=== PATIENT | male | born 1970 | race Caucasian/White ===

== ENCOUNTER 2017-12-14 14:11 | Emergency (ER) | payer OTHER ==
[2017-12-14 14:29] VITALS: TEMP 97.9
[2017-12-14] MEDS ORDERED: LIDOCAINE 5% PATCH TOPICAL STA (15:04)
[2017-12-14] MEDS ORDERED: fentaNYL (PF) 50 MCG/ML 2 ML AMP IVP STA (15:04)
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
[2017-12-14] MEDS ORDERED: MORPHINE SULFATE 4 MG/ML SYRINGE IVP PRN (15:09)
--- NOTE | 2017-12-14 16:34 | XR ---
EXAMINATION TYPE: XR chest 2V DATE OF EXAM: 12/14/2017 COMPARISON: NONE HISTORY: History of recent rib fractures pain and shortness of breath TECHNIQUE: Frontal and lateral views of the chest are obtained. FINDINGS: Patchy basilar density likely reflects atelectatic changes. No evident pneumothorax. Fifth rib on the right shows a minimally displaced fracture. Cardiac mediastinal silhouette, pulmonary vas cularity and lee are within normal limits. IMPRESSION: Basilar atelectasis. Minimally displaced right rib fracture.
[2017-12-14 17:25] VITALS: BP 127/81; PULSE 74; RESP 18
== END 2017-12-14 17:22 | disposition home or self-care (01) ==
LOC: EC 14:11
DX: R07.81 Pleurodynia (principal); S22.31XD Fracture of one rib, right side, subsequent encounter for fracture with routine healing; Z53.8 Procedure and treatment not carried out for other reasons; V99.XXXD Unspecified transport accident, subsequent encounter
CPT/HCPCS: 71046; 99285; 96374; J2270

== ENCOUNTER → 2018-04-18 | Outpatient (CLI) | payer OTHER ==
--- NOTE | 2018-04-18 09:09 | MR ---
EXAMINATION TYPE: MR shoulder LT wo con DATE OF EXAM: 04/18/2018 8:16 AM COMPARISON: NONE HISTORY: Left shoulder pain TECHNIQUE: Multiplanar multispin echo imaging of the left shoulder was performed. FINDINGS: Rotator cuff : There is thickening and heterogeneity of the supraspinatus tendon compatible with expense analyst florinda tendinopathy. There is no complete or bursal/articular sided partial rotator cuff tear. The subsc apularis constituent of the rotator cuff is intact. Bursa: No bursal effusion or thickening is seen. Musculature: There is no muscular tear, contusion, or atrophy. Acromioclavicular joint : There are mild degenerative changes of the acromioclavicular joint. Moderat e subacromial spurring results in the subacromial impingement. Osseous structures : There are no fractures or regions of abnormal bone marrow signal intensity. Long biceps tendon : The biceps tendon is normally situated within the bicipital groove. No complete or partial biceps tendon tear is present. Glenohumeral Joint fluid : There is no glenohumeral joint effusion. Cartilage and Bone : No focal hyaline cartilage defects are noted. No Hill-Sachs, reverse Hill-Sachs, or bony Bankart lesions are seen. Labrum : There are no SLAP or soft tissue Bankart lesions. No paralabral cysts are seen. OTHER FINDINGS : Small well-corticated cystic lesion humeral neck measuring 8 mm. IMPRESSION: 1. Chronic tendinopathy supraspinatus tendon with subacromial impingement noted.
== END | disposition home or self-care (01) ==
LOC: RADMRIMAIN 07:34
DX: M75.82 Other shoulder lesions, left shoulder (principal)

== ENCOUNTER → 2018-05-12 | Outpatient (CLI) | payer OTHER ==
[2018-05-12 08:43] LABS: Basophils # (A) 0.1 k/uL (0-0.2); Basophils % (A) 1 %; Eosinophils # (A) 0.3 k/uL (0-0.7); Eosinophils % (A) 4 %; HGB 15.5 gm/dL (13.0-17.5); Lymphocytes # (A) 1.5 k/uL (1.0-4.8); Lymphocytes % (A) 21 %; MCH 29.9 pg (25.0-35.0); MCHC 32.2 g/dL (31.0-37.0); MCV 92.9 fL (80.0-100.0); Mean Platelet Volume 6.2; Monocytes # (A) 0.3 k/uL (0-1.0); Monocytes % (A) 5 %; Neutrophils # (A) 4.6 k/uL (1.3-7.7); Neutrophils % (A) 67 %; Platelet Count 191 k/uL (150-450); RBC 5.16 m/uL (4.30-5.90); WBC 6.8 k/uL (3.8-10.6)
[2018-05-12 09:01] LABS: Potassium 4.4 mmol/L (3.5-5.1)
== END ==
LOC: LABPAT 08:02
PROVIDERS: ATTEND Orthopaedic Surgery
DX: Z01.812 Encounter for preprocedural laboratory examination (principal); M23.92 Unspecified internal derangement of left knee
CPT/HCPCS: 80051; 85025

== ENCOUNTER 2018-05-18 06:02 | Day surgery (SDC) | payer OTHER ==
[2018-05-12 14:30] VITALS: BMI 29.5
--- NOTE | 2018-05-17 15:04 | HP ---
HISTORY AND PHYSICAL DATE OF SERVICE: 05/18/2018 Juan Mendiola is a 47-year-old patient seen with progressive left knee pain. We discussed treatment options. He elected to proceed with arthroscopy. Consent regarding the procedure was obtained. PAST MEDICAL HISTORY: Depression, hypertension. PAST SURGICAL HISTORY: Left knee arthroscopy. DAILY MEDICATIONS: None. ALLERGIES: NONE KNOWN. SOCIAL HISTORY: Denies current tobacco use. PHYSICAL EVALUATION OF THE LEFT KNEE: Range of motion 0-85 degrees. Tenderness medial and lateral joint lines. Positive medial Antony's. Positive lateral Antony's. Ligaments are stable. Hip rotation is without pain. His distal neurovascular exam is intact. RADIOGRAPHS OF THE LEFT KNEE: Revealed patellofemoral joint osteoarthropathy as well as moderate medial and lateral compartment osteoarthritis. IMPRESSION: 1. Internal derangement, left knee with meniscal tear versus osteochondral tear. 2. History of left knee patellofemoral arthroplasty. 3. Hypertension. PLAN: Left knee arthroscopy with partial meniscectomy versus chondroplasty and debridement. MMODL / IJN: [id number] /
[~2018-05-18 06:02] MED LIST: ceFAZolin IN SWFI 2 GM/20 ML SYRINGE IVP ONE
[2018-05-18] MEDS ORDERED: fentaNYL (PF) 50 MCG/ML 2 ML AMP IV PRN (06:11)
[2018-05-18] MEDS ORDERED: LIDOCAINE 1% 20 ML VIAL (10MG/ML) FOR IV START INTRADERMA PRN (06:11)
[2018-05-18] MEDS ORDERED: LACTATED RINGERS 1,000 ML IV SCH (06:11)
[2018-05-18] MEDS ORDERED: ONDANSETRON 4 MG/2 ML VIAL IVP ONE (07:10)
[2018-05-18] MEDS ORDERED: DEXAMETHASONE SOD PHOS (MDV) 100 MG/10 ML VIAL IV ONE (07:11)
[2018-05-18] MEDS ORDERED: BUPIVACAIN-EPI 0.25%-1:200,000 30 ML VIAL INTRAARTIC ONE ×2 (07:46→08:27)
[2018-05-18] MEDS ORDERED: PROPOFOL 10 MG/ML 20 ML VIAL IV ONE (07:49)
[2018-05-18] MEDS ORDERED: fentaNYL (PF) 50 MCG/ML 2 ML AMP ONE (07:49)
[2018-05-18] MEDS ORDERED: KETOROLAC 30 MG/ML 1 ML VIAL ONE (07:49)
[2018-05-18] MEDS ORDERED: MIDAZOLAM 2 MG/2 ML VIAL ONE (07:49)
[2018-05-18] MEDS ORDERED: LIDOCAINE 1% INJ 10MG/ML (20 ML MDV) ONE (07:49)
[2018-05-18 08:44] VITALS: TEMP 97
--- NOTE | 2018-05-18 08:47 | P.OP ---
Date of Procedure: 05/18/18 Preoperative Diagnosis: Internal derangement left knee Postoperative Diagnosis: 1. Lateral meniscal tear left knee 2. 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 Reactive synovitis medial, lateral and suprapatellar compartments left knee Procedure(s) Performed: 1. Arthroscopic partial lateral meniscectomy left knee 2. Arthroscopic chondroplasty lateral tibial plateau left knee 3. Arthroscopic partial synovectomy medial, lateral and suprapatellar compartments left knee Anesthesia: GETA, local Surgeon: Jono Cassidy Estimated Blood Loss (ml): 5 Pathology: none sent Condition: stable Disposition: PACU Indications for Procedure: 47-year-old patient seen with progressive left knee pain. After treatment options were discussed, he elected to proceed with arthroscopy. Operative Findings: see description of procedure Description of Procedure: Patient was taken to the operative suite. Patient underwent a general anesthetic by the department of anesthesia. Patient was given preoperative antibiotics. The left lower extremity was placed in a well-padded arthroscopic leg chavez. The left leg was prepped and draped in the normal sterile orthopedic fashion. A lateral parapatellar and suprapatellar incision was made. Trochars were inserted. Arthroscopy was initiated. Suprapatellar pouch revealed diffuse thick reactive synovitis. There was a stable appearing patellofemoral compartment arthroplasty present. The patellar component appeared well seated. The femoral component appeared well seated. With range of motion and it seemed to articulate congruently. The scope was guided into the medial gutter. No loose bodies or plica were identified. The scope was then guided into the medial compartment. A medial parapatellar incision was made. Trocar inserted followed by probe. There was some mild fraying along the posterior aspect of the medial meniscus. There were grade 1/2 chondromalacia changes of the medial compartment with no osteochondral tears present. There was thick synovitis anteriorly. Motorize shaver was introduced I debrided that mild fraying of the posterior medial meniscus. I now performed a partial synovectomy decompressing the thick reactive synovitis along the anterior aspect medial compartment. There was good decompression of synovitis. Scope and probe were then guided into the intercondylar notch. Cruciates were identified, probed and found to be stable. The scope and probe were then guided into lateral compartment. There was a radial tear mid body and posterior horn lateral meniscus. There was area of grade 2 chondromalacia of the lateral tibial plateau with articular flap tears present. There was thick reactive synovitis anteriorly. I performed a partial medial meniscectomy down to stable tissue. I performed a chondroplasty of the lateral tibial plateau down to stable tissue. I performed a partial synovectomy decompressing the reactive synovitis. The residual meniscus was stable. The residual osteochondral surface was stable. There was good decompression of the synovitis. The scope was in guided back into the suprapatellar compartment. I introduced a motorized shaver into the suprapatellar compartment. I performed a partial synovectomy decompressing reactive synovitis. The shaver was removed. I took one more look around the entire knee, no residual debris. Instruments were now removed from the joint. The joint was infiltrated with .25% Marcaine. Steri-Strips were applied to the portal sites. Sterile dressings were applied. The patient was placed into a CASIMIRO hose. No tourniquet was utilized. The patient was awakened, transferred to a bed and taken to recovery stable satisfactory condition.
[2018-05-18 08:55] VITALS: RESP 18
[2018-05-18 10:08] VITALS: BP 124/82; PULSE 61
== END 2018-05-18 10:21 | disposition home or self-care (01) ==
LOC: OR 06:02
PROVIDERS: ATTEND Orthopaedic Surgery
DX: S83.282A Other tear of lateral meniscus, current injury, left knee, initial encounter (principal); M23.322 Other meniscus derangements, posterior horn of medial meniscus, left knee; M94.262 Chondromalacia, left knee; M65.88 Other synovitis and tenosynovitis, other site; M17.12 Unilateral primary osteoarthritis, left knee; I10 Essential (primary) hypertension; Z96.652 Presence of left artificial knee joint
CPT/HCPCS: 29880; J2250; J2405; J2001; J3010; J1885; J1100; J2704; J0690

== ENCOUNTER 2020-05-11 10:42 | Emergency (ER) | payer OTHER ==
[2020-05-11 11:09] VITALS: BP 109/73; PULSE 86; RESP 18; TEMP 99.1
--- NOTE | 2020-05-11 11:34 | ED ---
General Adult HPI - General Chief complaint: Upper Respiratory Infection Stated complaint: ENT, Cough Time Seen by Provider: 05/11/20 11:10 Source: patient Mode of arrival: ambulatory Limitations: no limitations - History of Present Illness Initial comments: 49-year-old male presents to the emergency department for a covid test. Patient reports that he has had a cough as well as congestion and headache for the past 3 or 4 days to shortness of breath or chest pain. Patient states he feels like he has been running fevers as well but has not been taking anything for these. Patient states that his son is Covid positive. States he would like to be tested. Patient has no other complaints at this time including shortness of breath, chest pain, abdominal pain, nausea or vomiting, headache, or visual changes. - Related Data Previous Rx's Medication Instructions Recorded HYDROcodone/APAP 7.5-325MG [[place] 1 - 2 each PO Q6HR PRN #24 tab 05/18/18 7.5-325] Allergies Allergy/AdvReac Type Severity Reaction Status Date / Time No Known Allergies Allergy Verified 05/11/20 11:09 Review of Systems ROS Statement: Those systems with pertinent positive or pertinent negative responses have been documented in the HPI. ROS Other: All systems not noted in ROS Statement are negative. Past Medical History Past Medical History: No Reported History History of Any Multi-Drug Resistant Organisms: None Reported Past Surgical History: Appendectomy, Hernia Repair, Orthopedic Surgery Additional Past Surgical History / Comment(s): lt knee, left inguinal Past Anesthesia/Blood Transfusion Reactions: No Reported Reaction Past Psychological History: Anxiety, PTSD Past Alcohol Use History: Occasional Past Drug Use History: None Reported - Past Family History Mother Family Medical History: No Reported History General Exam Limitations: no limitations General appearance: alert, in no apparent distress Head exam: Present: atraumatic, normocephalic, normal inspection Eye exam: Present: normal appearance, PERRL, EOMI. Absent: scleral icterus, conjunctival injection ENT exam: Present: normal exam, mucous membranes moist Neck exam: Present: normal inspection, full ROM. Absent: tenderness Respiratory exam: Present: normal lung sounds bilaterally. Absent: respiratory distress, wheezes Cardiovascular Exam: Present: regular rate, normal rhythm, normal heart sounds GI/Abdominal exam: Present: soft, normal bowel sounds. Absent: distended, tenderness Course Vital Signs 05/11/20 11:06 Temperature 99.1 F Pulse Rate 86 Respiratory 18 Rate Blood Pressure 109/73 O2 Sat by Pulse 97 Oximetry Medical Decision Making - Medical Decision Making Vitals are stable. Patient is well-appearing. No respiratory distress. Physical exam unremarkable. Patient is found to be Covid positive. Chest x-ray shows no acute cardiopulmonary process. Discussed vitamins as well as antipyretics. Discussed increasing fluid intake. Following up with primary care and returning for any worsening symptoms including shortness of breath. strict return parameters discussed. - Lab Data Lab Results 05/11/20 Range/Units 11:40 Coronavirus (PCR) Detected A (Not Detectd) Disposition Clinical Impression: COVID-19 Disposition: HOME SELF-CARE Condition: Good Instructions (If sedation given, give patient instructions): Coronavirus Disease 2019 (COVID-19) Additional Instructions: Please take Motrin and Tylenol for pain or fever. Drink plenty of fluids. Take vitamin C, vitamin D3, and zinc [id number]. Follow-up with your doctor in one to 2 days. Return to the emergency department for any worsening symptoms including shortness of breath. You must quarantine for at least 10 days from symptom onset as long as symptoms are improving at the end of the 10 days and you're longer having fevers. Is patient prescribed a controlled substance at d/c from ED?: No Referrals: Chadd Bermeo MD [REFERRING] - 1-2 days Time of Disposition: 12:42
--- NOTE | 2020-05-11 12:05 | XR ---
EXAMINATION TYPE: XR chest 1V DATE OF EXAM: 05/11/2020 COMPARISON: 12/14/2017 HISTORY: Cough TECHNIQUE: Single frontal view of the chest is obtained. The examination is somewhat limited by mildl y suboptimal inspiration. FINDINGS: The lungs are grossly clear consolidative or masslike opacity. There is no pleural effusion or pneumothorax. The heart, pulmonary vasculature, mediastinum and hilum appear normal. The osseous structures and soft tissues are unremarkable. IMPRESSION: No acute cardiopulmonary disease.
== END 2020-05-11 12:57 | disposition home or self-care (01) ==
LOC: EC 10:42
DX: U07.1 COVID-19 (principal)
CPT/HCPCS: 71045; 87635; 99285

== ENCOUNTER 2020-10-31 07:54 | Emergency (ER) | payer BC, OTHER ==
[2020-10-31 08:06] VITALS: RESP 18; TEMP 98.4
[2020-10-31] MEDS ORDERED: IBUPROFEN 600 MG TAB PO STA (08:12)
[2020-10-31] MEDS ORDERED: LIDOCAINE 1% INJ 10MG/ML (20 ML MDV) SQ ONE (08:19)
--- NOTE | 2020-10-31 09:17 | ED ---
Skin/Abscess/FB HPI - General Chief complaint: Skin/Abscess/Foreign Body Stated complaint: Abcess on back Time Seen by Provider: 10/31/20 08:10 Source: patient, RN notes reviewed Mode of arrival: ambulatory Limitations: no limitations - History of Present Illness Initial comments: Patient is a 49-year-old male that presents to the emergency department c omplaining of an abscess to the upper middle back. He notes that he has a history of lipoma was thought was that. He notes that it started draining last night on its own so he came in to get evaluated. She denied any radiating symptoms or other complaints. He notes the pain is pretty localized to the area abscess. She denied any chest pain shortness breath headache nausea vomiting diarrhea constipation fever fatigue chills. - Related Data Previous Rx's Medication Instructions Recorded HYDROcodone/APAP 7.5-325MG [[place] 1 - 2 each PO Q6HR PRN #24 tab 05/18/18 7.5-325] Cephalexin [Keflex] 500 mg PO Q6HR #40 cap 10/31/20 Sulfamethox-Tmp 800-160Mg [Bactrim 1 each PO Q12HR #20 tab 10/31/20 Ds] Allergies Allergy/AdvReac Type Severity Reaction Status Date / Time No Known Allergies Allergy Verified 10/31/20 08:01 Review of Systems ROS Statement: Those systems with pertinent positive or pertinent negative responses have been documented in the HPI. ROS Other: All systems not noted in ROS Statement are negative. Past Medical History Past Medical History: No Reported History History of Any Multi-Drug Resistant Organisms: None Reported Past Surgical History: Appendectomy, Hernia Repair, Orthopedic Surgery Additional Past Surgical History / Comment(s): lt knee, left inguinal Past Anesthesia/Blood Transfusion Reactions: No Reported Reaction Past Psychological History: Anxiety, PTSD Smoking Status: Never smoker Past Alcohol Use History: None Reported Past Drug Use History: None Reported - Past Family History Mother Family Medical History: No Reported History General Exam Limitations: no limitations General appearance: alert, in no apparent distress Head exam: Present: atraumatic, normocephalic, normal inspection Eye exam: Present: normal appearance, PERRL, EOMI. Absent: scleral icterus, conjunctival injection, periorbital swelling Neck exam: Present: normal inspection Respiratory exam: Present: normal lung sounds bilaterally. Absent: respiratory distress, wheezes, rales, rhonchi, stridor Cardiovascular Exam: Present: regular rate, normal rhythm, normal heart sounds. Absent: systolic murmur, diastolic murmur, rubs, gallop, clicks GI/Abdominal exam: Present: soft, normal bowel sounds. Absent: distended, tenderness, guarding, rebound, rigid Extremities exam: Present: normal inspection, full ROM, normal capillary refill. Absent: tenderness, pedal edema, joint swelling, calf tenderness Neurological exam: Present: alert, oriented X3 Psychiatric exam: Present: normal affect, normal mood Skin exam: Present: warm, dry, intact, normal color. Absent: rash Expanded Type of lesion: Present: abscess (Middle upper back, measuring approximately 5 cm x 5 cm, erythematous minimally tender draining.) Course Vital Signs 10/31/20 08:02 Temperature 98.4 F Pulse Rate 93 Respiratory 18 Rate Blood Pressure 155/99 O2 Sat by Pulse 100 Oximetry Procedures - Incision & Drainage Consent Obtained: verbal consent Site: back (Middle back) Size (cm): 5 Anesthetic Used: lidocaine 1% Amount (mLs): 6 I&D Cleaning Method: Betadine Sterile Field Used?: Yes Scalpel Used: #11 Irrigation Performed?: Yes I&D Drainage Obtained: Pus, Blood Packing: Iodoform Culture Obtained?: Yes Patient Tolerated Procedure: well, no complications Medical Decision Making - Medical Decision Making 49-year-old male with abscess to the upper middle back that is draining. Patient tolerated incision and drainage well. Culture obtained. Case discussed with Dr. Juares, patient can be discharged home with antibiotic therapy and follow-up primary care. Disposition Clinical Impression: Abscess of back Disposition: HOME SELF-CARE Condition: Stable Instructions (If sedation given, give patient instructions): Abscess (ED), Abscess Incision and Drainage (ED) Additional Instructions: Please return to the Emergency Department if symptoms worsen or any other concerns. Follow-up with primary care 1-2 days. Take antibiotics as prescribed until complete. Keep area clean and dry. Is patient prescribed a controlled substance at d/c from ED?: No Referrals: None,Stated [Primary Care Provider] - 1-2 days Time of Disposition: 09:16
[2020-10-31 09:53] VITALS: BP 131/85; PULSE 84
== END 2020-10-31 09:34 | disposition home or self-care (01) ==
LOC: EC 07:54
DX: L02.212 Cutaneous abscess of back [any part, except buttock and flank] (principal)
CPT/HCPCS: 99283; 87070; 87205; 10060; J2001

== ENCOUNTER → 2021-05-26 | Outpatient (CLI) | payer OTHER ==
--- NOTE | 2021-05-26 18:32 | CT ---
EXAMINATION TYPE: CT brain wo/w con DATE OF EXAM: 05/26/2021 COMPARISON: None available HISTORY: headaches and dizziness CT DLP: 2325.6 mGycm Automated exposure control for dose reduction was used. TECHNIQUE: CT scan of the brain is performed without and with IV contrast administration. FINDINGS: No acute intracranial hemorrhage. No gross acute cortical infarct. No midline shift, herniation or ve ntriculomegaly. Unremarkable thompson-white matter differentiation, basal cisterns, sella and CP angles. No gross space-o ccupying lesion, vasogenic edema or mass effect. No intracranial abnormal enhancement, meningeal thickening or hyperenhancement. Patent major intracra nial vessels. Unremarkable orbits. Clear visualized paranasal sinuses. Hypopneumatized mastoid air cells. No aggres sive bone lesion. IMPRESSION: No acute intracranial abnormality or gross space-occupying lesion.
== END | disposition home or self-care (01) ==
LOC: RADCTMAIN 17:21
PROVIDERS: ATTEND Nurse Practitioner Acute Care
DX: R42 Dizziness and giddiness (principal)
CPT/HCPCS: 70470; Q9967

== ENCOUNTER → 2023-06-18 | Outpatient (CLI) | payer OTHER ==
[2023-06-18 16:34] LABS: Basophils # (A) 0.07 X 10*3/uL (0.00-0.10); Eosinophils # (A) 0.13 X 10*3/uL (0.04-0.35); Eosinophils % (A) 1.8 %; HCT 44.4 % (39.6-50.0); HGB 15.1 g/dL (13.0-17.0); Lymphocytes # (A) 2.16 X 10*3/uL (0.90-5.00); Lymphocytes % (A) 30.7 %; MCH 30.4 pg (27.0-32.0); MCV 89.3 FL (80.0-97.0); Mean Platelet Volume 9.8 FL (9.5-12.2); Monocytes # (A) 0.55 X 10*3/uL (0.20-1.00); Monocytes % (A) 7.8 %; NRBC Per 100 WBC 0 X 10*3/uL (0.00-0.01); Neutrophils % (A) 58.3 %; Platelet Count 209 X 10*3/uL (140-440); RBC 4.97 X 10*6/uL (4.40-5.60); RDW 12.4 % (11.5-14.5); WBC 7.04 X 10*3/uL (4.50-10.00)
[2023-06-18 16:37] LABS: Blood Urea Nitrogen 18.7 mg/dL (9.0-27.0); Calcium 9.5 mg/dL (8.7-10.3); Carbon Dioxide 26.2 mmol/L (21.6-31.8); Chloride 104 mmol/L (96-109); Glucose 106 mg/dL (70-110); Potassium 3.6 mmol/L (3.5-5.5); Sodium 141 mmol/L (135-145)
[2023-06-18 16:40] LABS: INR 0.97 sec (0.93-1.11); Prothrombin Time 10.5 sec (9.9-11.9)
== END | disposition home or self-care (01) ==
LOC: LABPAT 08:00
PROVIDERS: ATTEND Orthopaedic Surgery
DX: Z01.812 Encounter for preprocedural laboratory examination (principal); T84.84XA Pain due to internal orthopedic prosthetic devices, implants and grafts, initial encounter; Z22.322 Carrier or suspected carrier of Methicillin resistant Staphylococcus aureus
CPT/HCPCS: 36415; 80048; 85025; 85610; 87070; 93005

== ENCOUNTER 2023-06-28 07:35 | Day surgery (SDC) | payer OTHER ==
[2023-06-23 17:35] VITALS: BMI 29.5
--- NOTE | 2023-06-27 13:32 | HP ---
HISTORY AND PHYSICAL DATE OF SURGERY: 06/28/2023. HISTORY OF PRESENT ILLNESS: Juan Mendiola is a 52-year-old gentleman, seen with a painful left knee patellofemoral compartment arthroplasty. We discussed options. He elected to proceed with revision left total knee arthroplasty. Consent was obtained. PAST MEDICAL HISTORY: Hypertension. PAST SURGICAL HISTORY: Left knee patellofemoral compartment arthroplasty. DAILY MEDICATIONS: 1. Motrin. 2. Tylenol. ALLERGIES: None. SOCIAL HISTORY: Denies tobacco use. PHYSICAL EVALUATION OF THE LEFT KNEE: He has a well-healed anterior incision. His range of motion is -7 to 110 degrees. There is a mild effusion present. He has tenderness along the medial and lateral joint lines. Ligaments are stable. Hip rotation is without pain. Distal neurovascular exam is intact. IMAGING STUDIES: Radiographs of the left knee revealed a stable appearing patellofemoral compartment arthroplasty along with moderate osteoarthritis involving the medial compartment. IMPRESSION: 1. Painful left knee patellofemoral compartment arthroplasty. 2. Hypertension. PLAN: Revision left total knee arthroplasty. MMODL / IJN: [id number] /
[~2023-06-28 07:35] MED LIST changes: +MORPHINE SULFATE 4 MG/ML SYRINGE IV PRN; +TRANEXAMIC 1,000 MG/100ML-NACL 1,000 MG in SALINE 1 100ML.BAG IVPB PRN; -ceFAZolin IN SWFI 2 GM/20 ML SYRINGE IVP ONE
[2023-06-28] MEDS: LACTATED RINGERS 1,000 ML IV SCH ×2 (08:40→17:29)
[2023-06-28] MEDS: MELOXICAM 7.5 MG TAB PO PRN (09:05)
[2023-06-28] MEDS: DEXAMETHASONE SOD PHOSPHATE 4 MG/ML 1 ML VIAL IV ONE (09:05)
[2023-06-28] MEDS: ACETAMINOPHEN TAB 500 MG TAB PO PRN (09:05)
[2023-06-28] MEDS: ONDANSETRON 4 MG/2 ML VIAL IVP ONE (09:05)
[2023-06-28] MEDS: MIDAZOLAM 2 MG/2 ML VIAL IVP ONE (09:18)
[2023-06-28] MEDS ORDERED: fentaNYL (PF) 50 MCG/ML 2 ML AMP ONE (10:14)
[2023-06-28] MEDS ORDERED: ROPIVACAINE 5 MG/ML 30 ML VIAL ONE (10:14)
[2023-06-28] MEDS ORDERED: KETAMINE HCL IN 0.9 % NACL 50 MG/5 ML SYRINGE ONE (10:14)
[2023-06-28] MEDS ORDERED: TRANEXAMIC 1,000 MG/100ML-NACL PREMIX BAG ONE (10:14)
[2023-06-28] MEDS ORDERED: MIDAZOLAM 2 MG/2 ML VIAL ONE (10:14)
[2023-06-28] MEDS ORDERED: PROPOFOL 10 MG/ML 20 ML VIAL IV ONE (10:14)
[2023-06-28] MEDS ORDERED: DEXAMETHASONE SOD PHOSPHATE 4 MG/ML 1 ML VIAL ONE (10:14)
[2023-06-28] MEDS ORDERED: HYDROmorphone (PF) 1 MG/ML ONE (10:14)
[2023-06-28] MEDS: ceFAZolin 1,000 MG in SODIUM CHLORIDE 0.9% 1,000 ML IRRIGATION ONE (10:41)
[2023-06-28] MEDS: LACTATED RINGERS 1,000 ML IV ONE (12:21)
--- NOTE | 2023-06-28 12:24 | P.OP ---
Date of Procedure: 06/28/23 Preoperative Diagnosis: Painful left knee patellofemoral joint arthroplasty Postoperative Diagnosis: Painful left knee patellofemoral joint arthroplasty Procedure(s) Performed: Revision left total knee arthroplasty Implants: 1. DePuy attune size 8 left cruciate retaining cemented femur 2. DePuy attune size 7 fixed-bearing cemented tibial baseplate 3. DePuy attune size 8 fixed-bearing cruciate retaining 10 mm polyethylene ti bial insert Anesthesia: regional (Adductor canal catheter, iPAQ block), spinal Surgeon: Jono Cassidy Project Manager #1: Yao Brock Estimated Blood Loss (ml): 70 Pathology: none sent Condition: stable Disposition: PACU Indications for Procedure: 52-year-old patient seen with painful left knee patellofemoral arthroplasty. We discussed treatment options. He elected to proceed with revision left total knee arthroplasty. Operative Findings: See description of procedure Description of Procedure: Patient was taken to the operative suite after having an adductor canal catheter placed by the department of anesthesia. Patient underwent a spinal anesthetic by the department of anesthesia. Patient was given preoperative IV intake antibiotics and TXA. A well-padded tourniquet was placed about the left lower extremity. The lower extremity was then prepped and draped in the normal sterile orthopedic fashion. The extremity was elevated, a tourniquet was insufflated to 300. A standard anterior incision was made sharply through skin. Dissection was taken down through the subcutaneous soft tissues down to the extensor mechanism. A medial arthrotomy was performed, patella was everted and knee was flexed. There was a patellofemoral compartment joint replacement present. There was moderate plus arthritis in the medial lateral compartments. The patellar polyethylene component appeared stable with some bony exostosis inferiorly. I now began working on removing the femoral sulcus metallic implant. I used a small sagittal saw on saw around the implant. I then used a curved osteotome and I was able to disengage the implant from the screw. I now utilize a screwdriver and remove the screw without difficulty. At this point I had successfully remove the trochlear/femoral sulcus component of the implant. I introduced my distal intramedullary femoral drill. I then introduced the distal femoral cutting jig. Cy CABALLERO secured the cutting jig with 2 pins. I held retractors in position while Cy CABALLERO performed the distal femoral resection through the guide area we now removed her distal femoral cutting guid e. We now placed our 4-in-1 femoral cutting block and positioned and it was secured with 2 pins by Cy CABALLERO while I held the block in position. The distal femoral finishing was now completed. A proximal tibial cutting guide was positioned. I held the guide in the appropriate position with both hands well Cy CABALLERO inserted stabilizing pins into the guide. Proximal tibial cut was made. We now placed a trial femoral component into position, along with an appropriate size tibial tray and insert. We now took the knee through range of motion and had full extension good flexion and good overall soft tissue balance noted. The patella was everted and again evaluated and it appeared stable. I did remove some of the exostosis along the inferior backside of the patella. I took the knee through range of motion and noted the patella tracked well. All trial components were removed after marking off the appropriate rotation of the tibia. Retractors were now positioned along the proximal tibia. An appropriate keel punch was made with the appropriate size tibial guide by myself on Cy CABALLERO assisted by holding retractors. At this point appropriate size implants were chosen and opened. The joint was irrigated copiously with pulse lavage mechanical irrigation. The wound was irrigated with pulse lavage mechanical irrigation. We mixed antibiotic methylmethacrylate. We placed the knee into flexion. We placed multiple retractors assisted by Cy CABALLERO to expose the proximal tibia. Once the methyl methacrylate was ready, the tibial component was cemented into place removing any excess methylmethacrylate form by both myself and Cy CABALLERO. The femoral component was cemented into place removing the removing any excess methylmethacrylate performed by both myself and Cy CABALLERO. We then inserted the appropriate size polyethylene tibial insert. We made sure that it was locked into position. We took the knee into full extension, and then back in a flexion making sure we had removed any excess methylmethacrylate. The knee was taken through full range of motion. The patella tracked nicely. There was good soft tissue balancing. The tourniquet was now released. Additional hemostasis was achieved via electrocautery. A second gram of TXA was given. The wound again was irrigated with pulse lavage mechanical irrigation. The extensor mechanism was repaired with Vicryl. We checked the repair with range of motion and it was stable. The subcutaneous soft tissues were repaired with Vicryl in layers. The skin was approximated with pernio/Dermabond. Sterile dressings were applied followed by loose web roll and Ramón bandage. The patient was transferred to a bed, and taken to recovery in stable and satisfactory condition. Cy CABALLERO assisted with this complex procedure.
[2023-06-28] MEDS ORDERED: HYDROcodone/APAP 5-325MG 1 EACH TAB PO PRN (12:29)
[2023-06-28] MEDS ORDERED: NALOXONE 0.4 MG/ML 1 ML VIAL IV PRN (12:29)
[2023-06-28] MEDS ORDERED: ONDANSETRON 4 MG/2 ML VIAL IVP PRN (12:29)
[2023-06-28] MEDS ORDERED: HYDROmorphone 0.5 MG/0.5 ML SYRINGE IVP PRN ×2 (12:29)
[2023-06-28] MEDS: HYDROmorphone 0.5 MG/0.5 ML SYRINGE IVP ONE ×2 (12:56→13:51)
[2023-06-28] MEDS ORDERED: ROPIVACAINE 1,100 MG, SODIUM CHLORIDE 0.9% 500 ML 330 ML, EMPTY PAIN BALL 1 EACH MISCELLANE PRN (12:58)
--- NOTE | 2023-06-28 13:53 | XR ---
EXAMINATION TYPE: XR knee limited LT DATE OF EXAM: 06/28/2023 COMPARISON: NONE TECHNIQUE: Two views submitted HISTORY: Post op FINDINGS: There is a prosthetic knee in near anatomic alignment. There is soft tissue edema and soft tissue e mphysema. Surgical melani along the distal femoral soft tissues anteriorly. IMPRESSION: 1. Postoperative change. Appears in near-anatomic alignment
[2023-06-28] MEDS: HYDROcodone/APAP 7.5-325MG 1 EACH TAB PO PRN (15:27)
--- NOTE | 2023-06-28 17:37 | P.CONS ---
History of Present Illness - Reason for Consult Consult date: 06/28/23 - History of Present Illness Patient is a 52-year-old male with no significant medical history presenting for elective revision of left total knee arthroplasty. Vital signs within normal limits. [facility] physicians consulted for medical management. Laboratory workup from 10 days ago did not show any abnormalities. No new blood work available. Knee x-ray shows postoperative changes. Patient currently denies any chest pain, shortness of breath, abdominal pain, nausea, vomiting, urinary or bowel complaints. No smoking, etoh, or drug use. Pertinent positives and negatives as discussed in HPI, a complete review of systems was performed and all other systems are negative. Patient seen and examined at bedside. Vital signs reviewed General: nontoxic, no distress, appears at stated age Derm: warm, dry, knee dressing clean, dry, intact Head: atraumatic, normocephalic, symmetric Eyes: EOMI, no lid lag, anicteric sclera, pupils equal round reactive to light ENT: Nose and ears atraumatic Neck: No thyromegaly, supple Mouth: no lip lesion, mucus membranes moist Cardiovascular: S1S2 reg, no murmur, no edema Lungs: clear to auscultation bilateral, no rhonchi, no rales, no wheeze, no accessory muscle use Abdominal: soft, nontender to palpation, no guarding, no appreciable organomegaly Ext: no gross muscle atrophy, muscle strength muscle strength 5 out of 5 in all 4 extremities, no contractures Neuro: CN II-XII grossly intact Psych: Alert, oriented, appropriate affect Assessment/Plan: Status post revision of left total knee arthroplasty - Pain control with oral [place] as needed, IV Dilaudid as needed, monitor for sedation - Ropivacaine per anesthesia - Okay to continue lactated Ringer at 100 cc an hour - Senna 2 at night for bowel regimen - Lovenox 30 subcu every 12 hours for DVT prophylaxis - CBC and BMP pending for tomorrow Thank you for allowing us to participate in the care of this pleasant patient. Do not hesitate to contact us with questions. Someone can be reached from the [facility] hospitalist group all hours of the day at [phone] or via [employer]. Past Medical History Past Medical History: No Reported History Additional Past Medical History / Comment(s): skin cancer, lt knee, uses C-PAP. Only uses C-PAP when he feels he needs to. History of Any Multi-Drug Resistant Organisms: None Reported Past Surgical History: Appendectomy, Hernia Repair, Orthopedic Surgery Additional Past Surgical History / Comment(s): lt knee, left inguinal Past Anesthesia/Blood Transfusion Reactions: No Reported Reaction Additional Past Anesthesia/Blood Transfusion Reaction / Comm: No hx of blood transfusion. Past Psychological History: Anxiety, PTSD Smoking Status: Never smoker Past Alcohol Use History: None Reported Past Drug Use History: None Reported - Past Family History Mother Family Medical History: No Reported History Medications and Allergies Home Medications Medication Instructions Recorded Confirmed Type HYDROcodone/APAP 7.5-325MG [[place] 1 - 2 each PO Q6HR PRN #24 tab 05/18/18 06/28/23 Rx 7.5-325] Cephalexin [Keflex] 500 mg PO Q6HR #40 cap 10/31/20 06/28/23 Rx Sulfamethox-Tmp 800-160Mg [Bactrim 1 each PO Q12HR #20 tab 10/31/20 06/28/23 Rx Ds] Allergies Allergy/AdvReac Type Severity Reaction Status Date / Time No Known Allergies Allergy Verified 06/28/23 08:38 Physical Exam Vitals: Vital Signs Temp Pulse Pulse Resp BP BP Pulse Ox 06/28/23 15:21 98.0 F 74 18 152/93 98 06/28/23 15:00 66 16 111/59 94 L 06/28/23 14:45 68 16 116/61 94 L 06/28/23 14:30 66 16 117/64 94 L 06/28/23 14:15 74 16 124/63 94 L 06/28/23 14:02 74 16 125/65 94 L 06/28/23 13:45 74 16 129/77 94 L 06/28/23 13:30 74 17 125/73 94 L 06/28/23 13:15 68 16 121/84 96 06/28/23 13:03 61 16 124/86 96 06/28/23 12:43 97.3 F L 65 16 147/82 100 06/28/23 09:32 71 16 118/78 98 06/28/23 08:42 97.1 F L 59 L 16 138/93 98 Intake and Output 06/28/23 06/28/23 06/28/23 06:59 14:59 22:59 Intake Total 951 Output Total 70 Balance 881 Intake: IV 951 Output: Estimated Blood Loss 70 Other: Weight 103.1 kg 103.1 kg
--- NOTE | 2023-06-28 18:40 | P.ANPRN ---
Procedure Note - Anesthesia - Nerve Block Performed Left Adductor Canal Infusion Time Out Performed: Yes Date of Procedure: 06/28/23 Procedure Start Time: : Procedure Stop Time: Location of Patient: PreOp Indication: Acute Post-Operative Pain, Requested by Surgeon Sedation Type: Sedate with meaningful contact maintained Preparation: Sterile Prep, Sterile Dressing Position: Supine Catheter: Indwelling Needle Types: Pajunk Needle Gauge: 21 Ultrasound used to visualize needle placement: Yes Ultrasound used to observe medication spread: Yes Blood Aspirated: No Pain Paresthesia on Injection Noted: No Resistance on Injection: Normal Image Stored and Saved: Yes Events: Uneventful and Well Tolerated (Ropivacaine 0.5% 20 cc plus dexamethasone 4 mg)
--- NOTE | 2023-06-28 18:41 | P.ANPRN ---
Procedure Note - Anesthesia - Nerve Block Performed Left iPack Single Time Out Performed: Yes Date of Procedure: 06/28/23 Procedure Start Time: Procedure Stop Time: Location of Patient: PreOp Indication: Acute Post-Operative Pain, Requested by Surgeon Sedation Type: Sedate with meaningful contact maintained Preparation: Sterile Prep Position: Supine Needle Types: Pajunk Needle Gauge: 21 Ultrasound used to visualize needle placement: Yes Ultrasound used to observe medication spread: Yes Blood Aspirated: No Pain Paresthesia on Injection Noted: No Resistance on Injection: Normal Image Stored and Saved: Yes Events: Uneventful and Well Tolerated (Ropivacaine 0.5% 20 cc plus dexamethasone 4 mg)
[2023-06-28] MEDS: HYDROmorphone 1 MG/ML 1 ML SYRINGE IVP PRN (18:48)
[2023-06-28] MEDS: SENNOSIDES-DOCUSATE SODIUM 1 EACH TAB PO SCH (20:14)
[2023-06-29] MEDS: ENOXAPARIN 30 MG/0.3 ML SYRINGE SQ SCH (06:56)
[2023-06-29 08:00] VITALS: BP 151/95; PULSE 72; RESP 16; TEMP 98.1
[2023-06-29 08:36] LABS: Basophils # (A) 0.03 X 10*3/uL (0.00-0.10); Basophils % (A) 0.2 %; Eosinophils # (A) 0.02 X 10*3/uL (0.04-0.35); Eosinophils % (A) 0.2 %; HCT 42.2 % (39.6-50.0); HGB 14.2 g/dL (13.0-17.0); Lymphocytes # (A) 1.44 X 10*3/uL (0.90-5.00); Lymphocytes % (A) 10.9 %; MCH 30.5 pg (27.0-32.0); MCHC 33.6 g/dL (32.0-37.0); MCV 90.8 FL (80.0-97.0); Mean Platelet Volume 10.5 FL (9.5-12.2); Monocytes # (A) 1.08 X 10*3/uL (0.20-1.00); Monocytes % (A) 8.2 %; NRBC Per 100 WBC 0 X 10*3/uL (0.00-0.01); Neutrophils # (A) 10.55 X 10*3/uL (1.80-7.70); Neutrophils % (A) 80.2 %; Platelet Count 193 X 10*3/uL (140-440); RBC 4.65 X 10*6/uL (4.40-5.60); RDW 12.4 % (11.5-14.5); WBC 13.16 X 10*3/uL (4.50-10.00)
[2023-06-29 09:05] LABS: BUN/Creat Ratio 12.64 Ratio (12.00-20.00); Blood Urea Nitrogen 13.9 mg/dL (9.0-27.0); Calcium 8.7 mg/dL (8.7-10.3); Carbon Dioxide 22.6 mmol/L (21.6-31.8); Chloride 105 mmol/L (96-109); Glucose 156 mg/dL (70-110); Potassium 4.1 mmol/L (3.5-5.5); Sodium 138 mmol/L (135-145)
--- NOTE | 2023-06-29 11:38 | P.GSCN ---
History of Present Illness Consult date: 06/29/23 Reason for Consult: Varicocele History of present illness: This is a 52-year-old male that underwent a left knee replacement yesterday by Dr. Cassidy. Urology is consulted for a finding of left varicocele. Patient indicated he has noticed evidence of varicocele along the spermatic cord and scrotal varices. He is unsure how long this has been present. Denies any pain or bleeding. Denies any voiding issues at baseline. No previous urological surgeries. No known family history of malignancies. Review of Systems - Constitutional Denies fever, Denies weight loss - EENT Ears, nose, mouth and throat: Denies dysphagia - Cardiovascular Denies chest pain, Denies shortness of breath - Respiratory Denies cough, Denies 7 - Gastrointestinal Reports as per HPI - Genitourinary Denies dysuria, Denies hematuria Past Medical History Past Medical History: No Reported History Additional Past Medical History / Comment(s): skin cancer, lt knee, uses C-PAP. Only uses C-PAP when he feels he needs to. History of Any Multi-Drug Resistant Organisms: None Reported Past Surgical History: Appendectomy, Hernia Repair, Orthopedic Surgery Additional Past Surgical History / Comment(s): lt knee, left inguinal Past Anesthesia/Blood Transfusion Reactions: No Reported Reaction Additional Past Anesthesia/Blood Transfusion Reaction / Comm: No hx of blood transfusion. Past Psychological History: Anxiety, PTSD Smoking Status: Never smoker Past Alcohol Use History: None Reported Past Drug Use History: None Reported - Past Family History Mother Family Medical History: No Reported History Medications and Allergies Home Medications Medication Instructions Recorded Confirmed Type HYDROcodone/APAP 7.5-325MG [[place] 1 - 2 each PO Q6HR PRN #24 tab 05/18/18 Rx 7.5-325] Allergies Allergy/AdvReac Type Severity Reaction Status Date / Time No Known Allergies Allergy Verified 06/28/23 08:38 Surgical - Exam Vital Signs Temp Pulse Resp BP Pulse Ox 97.1 F L 59 L 16 138/93 98 06/28/23 08:42 06/28/23 08:42 06/28/23 08:42 06/28/23 08:42 06/28/23 08:42 - General no distress, no pain - Eyes normal ocular movement, no pale - ENT normal nares, normal mucosa - Respiratory normal expansion, normal respiratory effort - Abdomen Abdomen: soft, non tender - Genitourinary Multiple scrotal varices along the posterior aspect of the scrotum, great 3 varicocele on the left side normal penis with no external lesions, testicles present, testicles non-tender - Psychiatric oriented to time, oriented to person, oriented to place Results - Labs 06/29/23 03:29 06/29/23 03:29 Abnormal Lab Results - Last 24 Hours (Table) 06/29/23 06/29/23 Range/Units 03:29 03:29 WBC 13.16 H (4.50-10.00) X 10*3/uL Neutrophils # 10.55 H (1.80-7.70) X 10*3/uL Monocytes # 1.08 H (0.20-1.00) X 10*3/uL Eosinophils # 0.02 L (0.04-0.35) X 10*3/uL Glucose 156 H (70-110) mg/dL Diabetes panel 06/29/23 Range/Units 03:29 Sodium 138 (135-145) mmol/L Potassium 4.1 (3.5-5.5) mmol/L Chloride 105 (96-109) mmol/L Carbon Dioxide 22.6 (21.6-31.8) mmol/L BUN 13.9 (9.0-27.0) mg/dL Creatinine 1.1 (0.6-1.5) mg/dL Glucose 156 H (70-110) mg/dL Calcium 8.7 (8.7-10.3) mg/dL Calcium panel 06/29/23 Range/Units 03:29 Calcium 8.7 (8.7-10.3) mg/dL Pituitary panel 06/29/23 Range/Units 03:29 Sodium 138 (135-145) mmol/L Potassium 4.1 (3.5-5.5) mmol/L Chloride 105 (96-109) mmol/L Carbon Dioxide 22.6 (21.6-31.8) mmol/L BUN 13.9 (9.0-27.0) mg/dL Creatinine 1.1 (0.6-1.5) mg/dL Glucose 156 H (70-110) mg/dL Calcium 8.7 (8.7-10.3) mg/dL Adrenal panel 06/29/23 Range/Units 03:29 Sodium 138 (135-145) mmol/L Potassium 4.1 (3.5-5.5) mmol/L Chloride 105 (96-109) mmol/L Carbon Dioxide 22.6 (21.6-31.8) mmol/L BUN 13.9 (9.0-27.0) mg/dL Creatinine 1.1 (0.6-1.5) mg/dL Glucose 156 H (70-110) mg/dL Calcium 8.7 (8.7-10.3) mg/dL Assessment and Plan Assessment: 52-year-old male with left-sided varicocele, multiple scrotal varices along the posterior aspect of the scrotum. Discussed with him this is a common benign finding and given the lack of symptoms no intervention is needed from urology standpoint
--- NOTE | 2023-06-29 12:12 | P.PN ---
Subjective Progress Note Date: 06/29/23 Subjective: Patient seen and examined at bedside. No acute events overnight. Able to ambulate with a walker. Pertinent positives and negatives as discussed above, a complete review of systems was performed and all other systems are negative. Vitals Signs Reviewed. General: Nontoxic, no distress, appears at stated age Derm: Warm, dry, dressing clean, dry, intact Head: Atraumatic, normocephalic, symmetric Eyes: EOMI, no lid lag, anicteric sclera Mouth: No lip lesion, mucus membranes moist Cardiovascular: S1S2 reg, no murmur Lungs: CTA bilateral, no rhonchi, no rales, no accessory muscle use Abdominal: Soft, nontender to palpation, no guarding, no appreciable organomegaly Ext: No gross muscle atrophy, no edema, no contractures Neuro: CN II-XI grossly intact, no focal neuro deficits Psych: Alert, oriented, appropriate affect Data Reviewed Today: Pertinent Labs: WBC 13.16, hemoglobin 14.2, creatinine 1.1 Imaging: No new imaging Assessment and Plan: Status post revision of left total knee arthroplasty Leukocytosis, anticipated outcome of surgery - Pain control with oral [place] as needed, IV Dilaudid as needed, monitor for sedation - Ropivacaine per anesthesia - Okay to continue lactated Ringer at 100 cc an hour - Senna 2 at night for bowel regimen - Lovenox 30 subcu every 12 hours for DVT prophylaxis Varicocele Urology note reviewed, no interventions recommended Hypertension Likely related to pain, no additional medications required Patient is medically optimized for discharge Thank you for allowing us to participate in the care of this pleasant patient. Do not hesitate to contact us with questions. Someone can be reached from the [facility] hospitalist group all hours of the day at [phone] or via [employer]. Objective - Vital Signs Vital signs: Vital Signs Temp 98.1 F 06/29/23 07:18 Pulse 72 06/29/23 07:18 Resp 16 06/29/23 07:18 BP 151/95 06/29/23 07:18 Pulse Ox 99 06/29/23 07:18 FiO2 Intake & Output 06/28/23 06/29/23 06/29/23 18:59 06:59 18:59 Intake Total 951 Output Total 70 2250 350 Balance 881 -2250 -350 Weight 103.1 kg Intake: IV 951 Output: Urine 2250 350 Estimated Blood Loss 70 Other: Voiding Method Urinal # Voids 1 - Labs CBC & Chem 7: 06/29/23 03:29 06/29/23 03:29 Labs: Abnormal Lab Results - Last 24 Hours (Table) 06/29/23 06/29/23 Range/Units 03:29 03:29 WBC 13.16 H (4.50-10.00) X 10*3/uL Neutrophils # 10.55 H (1.80-7.70) X 10*3/uL Monocytes # 1.08 H (0.20-1.00) X 10*3/uL Eosinophils # 0.02 L (0.04-0.35) X 10*3/uL Glucose 156 H (70-110) mg/dL
[2023-06-29] MEDS: MULTIVITAMINS, THERA 1 EACH TAB PO SCH (12:39)
--- NOTE | 2023-06-29 12:47 | P.PN ---
Subjective Progress Note Date: 06/29/23 Principal diagnosis: Status post left total knee arthroplasty Patient was evaluated at bedside, he is resting comfortably. He was evaluated on 2 separate occasions today, he did very well with physical therapy. His pain is well-controlled. He did note some varicosities in the left-sided scrotum, urology was consulted and their recommendations are appreciated. Denies any he adaches, lightheadedness, chest pain or shortness of breath Objective - Vital Signs Vital signs: Vital Signs Temp 98.1 F 06/29/23 07:18 Pulse 72 06/29/23 07:18 Resp 16 06/29/23 07:18 BP 151/95 06/29/23 07:18 Pulse Ox 99 06/29/23 07:18 FiO2 Intake & Output 06/28/23 06/29/23 06/29/23 18:59 06:59 18:59 Intake Total 951 Output Total 70 2250 350 Balance 881 -2250 -350 Weight 103.1 kg Intake: IV 951 Output: Urine 2250 350 Estimated Blood Loss 70 Other: Voiding Method Urinal # Voids 1 - Exam Left lower extremity: Incision is clean, dry, and intact. The foam dressing is in good condition. There is minimal soft tissue swelling and ecchymosis surrounding the medial and lateral aspects of the incision. Calf is soft, no tenderness with palpation. Plantar flexion, dorsiflexion, EHL, FHL are intact. Sensory exam to light touch throughout the extremity is intact, dorsal pedis pulses 2+. - Labs CBC & Chem 7: 06/29/23 03:29 06/29/23 03:29 Labs: Abnormal Lab Results - Last 24 Hours (Table) 06/29/23 06/29/23 Range/Units 03:29 03:29 WBC 13.16 H (4.50-10.00) X 10*3/uL Neutrophils # 10.55 H (1.80-7.70) X 10*3/uL Monocytes # 1.08 H (0.20-1.00) X 10*3/uL Eosinophils # 0.02 L (0.04-0.35) X 10*3/uL Glucose 156 H (70-110) mg/dL Assessment and Plan Assessment: Postoperative day #1 status post left total knee arthroplasty Plan: Pain control, plan for discharge home on [place] 7.5 mg / 325 mg. We also discussed the use of [id number] NSAIDs and Tylenol DVT prophylaxis, aspirin 81 mg twice a day for 30 days Wound care instructions discussed, this to include showering instructions, when to remove bandage and use of On-Q pain catheter Icing elevating techniques discussed Home health care after discharge Medical recommendations appreciated Discharge planning: Patient stable for discharge home today Time with Patient: Less than 30
--- NOTE | 2023-06-29 12:50 | P.DS ---
Providers Date of admission: 06/28/2023 Expected date of discharge: 06/29/23 Attending physician: Jono Cassidy Consults: 06/28/23 12:29 Consult Physician Routine Consulting Provider: Binta Borrego Consult Reason/Comments: Medical management Do you want consulting provider notified?: Yes 06/29/23 07:46 Consult Physician Routine Consulting Provider: Marcio Miller Consult Reason/Comments: Varicocele Do you want consulting provider notified?: Yes Primary care physician: [facility] Hospital Course: Date of admission: 06/28/2023 Date of discharge: 06/29/2023 Admission diagnosis: Status post left total knee arthroplasty Discharge diagnosis: Same Attending physician: Dr. Cassidy Surgical procedures: Left total knee arthroplasty Brief history: Patient is a 52-year-old male with a history of previous left patellofemoral joint replacement. Patient is dealt with significant discomfort throughout that knee over the last few years, conservative measures have not caused adequate relief. Patient was scheduled for an elective left total knee arthroplasty. Hospital course: Details of patient's surgery can be found in operative report. Patient tolerated the procedure well and was subsequently transported to orthopedic floor. Patient's orthopeidc and medical care was provided daily. Patient had daily laboratory tests performed for evaluation of overall blood counts. Patient had daily physical therapy to include strengthening range of motion as well as education with walker ambulation. Patient was treated with Lovenox for their postoperative DVT prophylaxis during their inpatient stay. Patient was noted to have a relatively uneventful postoperative course. Patient reported satisfactory pain control with oral pain medications by postoperative day 1. Patient showed satisfactory progress with physical therapy. Patient moved steadily through the program and had no difficulty meeting the goals by postoperative day 1. Given patient's otherwise satisfactory course and having met physical therapy goals, plan is to discharge patient home on postoperative day 1. Discharge condition/disposition: Patient will be discharged home in stable condition. Discharge medications: Instructions are given on resumption of patient's normal daily medications per primary care recommendation, in addition patient will be prescribed Banner 7.5 mg / 325 mg, senna S, aspirin 81 mg. Discharge instructions: 1. Wound care and infection precautions, keep incision dry and covered while showering, no lotions, creams, moisturizers. No soaking, tubs, pools, hottubs. Do not scrub over the incision. 2. Weight-bear as tolerated with walker / cane until follow-up. 3. Ice and elevate when necessary. Do not exceed 20 minutes per hour with ice pack. 4. Utilize compression sleeve until seen at first follow up appointment. 5. Visiting nursing care. 6. Home physical therapy including home CPM. 7. Pain meds and anticoagulants per prescription. 8. Pain medication has potential to cause constipation. Increase oral fluid and fiber intake. Contact primary care provider if you have not had a bowel movement within 48 hours after discharge 9. No anti-inflammatory medication until discussed at first post operative visit, this including Motrin, Aleve, Mobic, Diclofenac. 10. Follow up in office at 2 weeks postop with Cy Brock PA-C/Marlon Clay 11. Follow up with your primary care doctor 7-10 days after discharge. 12. Contact [facility] with any questions, . Procedures: Left total knee arthroplasty Patient Condition at Discharge: Good Plan - Discharge Summary Discharge Rx Participant: Yes New Discharge Prescriptions: New Aspirin [Adult Low Dose Aspirin EC] 81 mg PO BID #60 tab HYDROcodone/APAP 7.5-325MG [Banner 7.5] 1 each PO Q6HR PRN #28 tab PRN Reason: Pain Sennosides/Docusate Sodium [Senna-S 8.6-50 mg Tablet] 2 each PO DAILY PRN #30 tablet PRN Reason: Constipation Discontinued Cephalexin [Keflex] 500 mg PO Q6HR #40 cap Sulfamethox-Tmp 800-160Mg [Bactrim Ds] 1 each PO Q12HR #20 tab No Action HYDROcodone/APAP 7.5-325MG [Banner 7.5-325] 1 - 2 each PO Q6HR PRN #24 tab PRN Reason: Pain Discharge Medication List HYDROcodone/APAP 7.5-325MG [Banner 7.5-325] 1 - 2 each PO Q6HR PRN #24 tab 05/18/18 [Rx] Aspirin [Adult Low Dose Aspirin EC] 81 mg PO BID #60 tab 06/29/23 [Rx] HYDROcodone/APAP 7.5-325MG [Banner 7.5] 1 each PO Q6HR PRN #28 tab 06/29/23 [Rx] Sennosides/Docusate Sodium [Senna-S 8.6-50 mg Tablet] 2 each PO DAILY PRN #30 tablet 06/29/23 [Rx] Follow up Appointment(s)/Referral(s): Yao Brock PAC [PHYSICIAN CRUSHER LOADER OPERATOR] - 2 Weeks Activity/Diet/Wound Care/Special Instructions: Orthopedic Discharge Instructions: 1. Wound care and infection precautions, keep incision dry and covered while showering, no lotions, creams, moisturizers. No soaking, pools, hot tubs. Do not scrub over incision. 2. Weight-bear as tolerated with walker / cane until follow-up. 3. Ice and elevate when necessary. Do not exceed 20 minutes per hour with ice pack. 4. Utilize compression sleeve until seen at first follow up appointment. 5. Pain meds and anticoagulants per prescription. 6. Pain medication has potential to cause constipation. Increase oral fluid and fiber intake. Contact primary care provider if you have not had a bowel movement within 48 hours after discharge. 7. No anti-inflammatory medication until discussed at first post operative visit, this including Motrin, Aleve, Mobic, Diclofenac. 8. Follow up in office at 2 weeks postop with Cy Brock PA-C/Marlon Raya PA-C 9. Follow up with your primary care doctor 7-10 days after discharge. 10. Contact [facility] with any questions, . Wound care instructions: 1. Ok to remove surgical bandage as of 06/06/2023 2. Ok to shower over incision after removal of incision Discharge Disposition: HOME WITH HOME HEALTH SERVICES
--- NOTE | 2023-06-29 13:04 | P.PN ---
Progress Note - Text 06/29/23 632am 52-year-old male status post knee replacement by Dr. Cassidy. Patient has an On-Q pump for postop pain control with a solution running at 8 cc an hour with a VAS of 6, dressing clean dry and intact. Continue On-Q pump infusion
== END 2023-06-29 14:49 | disposition home health service (06) ==
LOC: OR 07:35 → 4SSUR 12:43 → OR 06-29 14:49
PROVIDERS: ATTEND Orthopaedic Surgery
DX: T84.84XA Pain due to internal orthopedic prosthetic devices, implants and grafts, initial encounter (principal); I86.1 Scrotal varices; D72.829 Elevated white blood cell count, unspecified; I10 Essential (primary) hypertension; G89.18 Other acute postprocedural pain; F41.9 Anxiety disorder, unspecified; F43.10 Post-traumatic stress disorder, unspecified; Z96.652 Presence of left artificial knee joint; Z85.828 Personal history of other malignant neoplasm of skin; Z79.82 Long term (current) use of aspirin; Z79.899 Other long term (current) drug therapy; Y83.8 Other surgical procedures as the cause of abnormal reaction of the patient, or of later complication, without mention of misadventure at the time of the procedure
CPT/HCPCS: 27486; 97161; 64999; 64448; 80048; 85025; 73560; C1776; C1713; C1751; J2250; J1100; J0690 ×3; J2405; J3010; J1650; J1170 ×2; J2795; J2704

== ENCOUNTER 2024-01-11 09:02 | Day surgery (SDC) | payer OTHER ==
[~2024-01-11 09:02] MED LIST changes: +LIDOCAINE 1% (10MG/ML) FOR IV START INTRADERMA PRN; -MORPHINE SULFATE 4 MG/ML SYRINGE IV PRN; -TRANEXAMIC 1,000 MG/100ML-NACL 1,000 MG in SALINE 1 100ML.BAG IVPB PRN
[2024-01-11 11:32] VITALS: TEMP 97.2
[2024-01-11] MEDS: LACTATED RINGERS 1,000 ML IV SCH (11:39)
[2024-01-11] MEDS: IV FLUID CONTINUATION 1,000 ML IV ONE (11:42)
[2024-01-11] MEDS ORDERED: LIDOCAINE 1% INJ 10MG/ML (20 ML MDV) ONE (11:53)
[2024-01-11] MEDS ORDERED: PROPOFOL 10 MG/ML 20 ML VIAL IV ONE (11:53)
--- NOTE | 2024-01-11 11:56 | P.GSHP ---
History of Present Illness H&P Date: 01/11/24 Chief Complaint: Colon cancer screening 53-year-old male here for colonoscopy. He has not had 1 previously. No bowel complaints. No family history of colon cancer. Past Medical History Past Medical History: Cancer, Osteoarthritis (OA), Sleep Apnea/CPAP/BIPAP Additional Past Medical History / Comment(s): skin cancer, uses C-PAP occasionally History of Any Multi-Drug Resistant Organisms: None Reported Past Surgical History: Appendectomy, Hernia Repair, Joint Replacement, Orthopedic Surgery Additional Past Surgical History / Comment(s): lt knee, left inguinal, left knee replaced 06/22 Past Anesthesia/Blood Transfusion Reactions: No Reported Reaction Additional Past Anesthesia/Blood Transfusion Reaction / Comment(s): No hx of blood transfusion. Smoking Status: Former smoker - Past Family History Mother Family Medical History: No Reported History Medications and Allergies Home Medications Medication Instructions Recorded Confirmed Type No Known Home Medications 01/07/24 01/07/24 History Allergies Allergy/AdvReac Type Severity Reaction Status Date / Time No Known Allergies Allergy Verified 01/11/24 11:28 Surgical - Exam Vital Signs Temp Pulse Resp BP Pulse Ox 97.2 F L 72 16 143/91 97 01/11/24 11:31 01/11/24 11:31 01/11/24 11:31 01/11/24 11:31 01/11/24 11:31 Physical exam: General: Well-developed, well-nourished HEENT: Normocephalic, sclerae nonicteric Abdomen: Nontender, nondistended Extremities: No edema Neuro: Alert and oriented Assessment and Plan (1) Colon cancer screening Narrative/Plan: Will proceed with colonoscopy at this time. Current Visit: Yes Status: Acute Code(s): Z12.11 - ENCOUNTER FOR SCREENING FOR MALIGNANT NEOPLASM OF COLON SNOMED Code(s): 588612030
--- NOTE | 2024-01-11 12:05 | P.PCN ---
Date of Procedure: 01/11/24 Procedure(s) Performed: PREOPERATIVE DIAGNOSIS: Colon cancer screening POSTOPERATIVE DIAGNOSIS: Normal exam PROCEDURE: Colonoscopy ANESTHESIA: MAC SURGEON: Billy Lovelace M.D. SPECIMENS: None ENDOSCOPIC PROCEDURE: The patient was placed on the endoscopy table in the left decubitus position. The Olympus colonoscope was inserted into the anus and passed under direct visualization to the base of the cecum. The appendiceal orifice was visualized. From that point the scope was slowly withdrawn inspecti ng all surfaces carefully. There were no neoplastic inflammatory or polypoid lesions throughout the cecum, ascending, transverse, descending, sigmoid and rectum. There was no visible diverticulosis noted. Digital rectal examination was normal. The patient was taken to the recovery room in stable condition per anesthesia guidelines. RECOMMENDATIONS: Resume diet. Follow-up colonoscopy 10 years.
[2024-01-11 12:24] VITALS: BP 120/76; PULSE 74; RESP 16
== END 2024-01-11 12:38 | disposition home or self-care (01) ==
LOC: ORWHC2ENDO 09:02
PROVIDERS: ATTEND Surgery
DX: Z12.11 Encounter for screening for malignant neoplasm of colon (principal); G47.33 Obstructive sleep apnea (adult) (pediatric); Z87.891 Personal history of nicotine dependence
CPT/HCPCS: J2003; J2704; G0121

== ENCOUNTER 2024-07-16 19:31 | Emergency (ER) | payer OTHER ==
--- NOTE | 2024-07-16 20:38 | ED ---
Back Pain HPI - General Chief Complaint: Back Pain/Injury Stated Complaint: back pain Time Seen by Provider: 07/16/24 20:34 Source: patient, RN notes reviewed Limitations: no limitations - History of Present Illness Initial Comments: 53-year-old male presenting for left flank pain x 1 day. States pain began around 7 AM this morning and has worsened in quality. Describes a constant, dull pain in the left flank radiating to the left lower abdomen. Patient states he cannot get comfortable. Pain is worse with movement. 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 Denies numbness, tingling, or weakness of the legs. Denies nausea or vomiting. Denies injury or trauma to the back. States he does have a history of kidney stones. Has not taken anything yet today for pain. Denies urinary symptoms however reports his urine is darker in color than usual. No other health conditions. Denies blood thinners. - Related Data Previous Rx's Medication Instructions Recorded Cyclobenzaprine [Flexeril] 10 mg PO TID PRN #15 tab 07/16/24 Lidocaine 4% Patch 1 patch TOPICAL DAILY PRN 7 Days 07/16/24 #7 patch Naproxen 500 mg PO Q12H PRN #30 tab 07/16/24 Allergies Allergy/AdvReac Type Severity Reaction Status Date / Time No Known Allergies Allergy Verified 07/16/24 19:35 Review of Systems ROS Statement: Those systems with pertinent positive or pertinent negative responses have been documented in the HPI. ROS Other: All systems not noted in ROS Statement are negative. Past Medical History Past Medical History: Cancer, Osteoarthritis (OA), Sleep Apnea/CPAP/BIPAP Additional Past Medical History / Comment(s): skin cancer, uses C-PAP occasionally History of Any Multi-Drug Resistant Organisms: None Reported Past Surgical History: Appendectomy, Hernia Repair, Joint Replacement, Orthopedic Surgery Additional Past Surgical History / Comment(s): lt knee, left inguinal, left knee replaced 06/22 Past Anesthesia/Blood Transfusion Reactions: No Reported Reaction Additional Past Anesthesia/Blood Transfusion Reaction / Comment(s): No hx of blood transfusion. Past Psychological History: Anxiety, PTSD Smoking Status: Former smoker Past Alcohol Use History: None Reported Past Drug Use History: None Reported - Past Family History Mother Family Medical History: No Reported History General Exam Limitations: no limitations General appearance: alert, in no apparent distress Head exam: Present: atraumatic, normocephalic, normal inspection Eye exam: Present: normal appearance, PERRL, EOMI. Absent: scleral icterus, conjunctival injection, periorbital swelling GI/Abdominal exam: Present: soft, normal bowel sounds. Absent: distended, tenderness, guarding, rebound, rigid Back exam: Present: normal inspection, full ROM, paraspinal tenderness (Left paraspinal tenderness), other (Full range of motion of bilateral legs, no saddle anesthesia, full sensation and DP pulses bilateral). Absent: CVA tenderness (R), CVA tenderness (L), vertebral tenderness Neurological exam: Present: alert, oriented X3 Psychiatric exam: Present: normal affect, normal mood Skin exam: Present: warm, dry, intact, normal color. Absent: rash Course Vital Signs 07/16/24 19:33 Temperature 97.8 F Pulse Rate 85 Respiratory 18 Rate Blood Pressure 163/103 O2 Sat by Pulse 98 Oximetry Medical Decision Making - Medical Decision Making Was pt. sent in by a medical professional or institution (, PA, LIFE INSURANCE UNDERWRITER, urgent care, hospital, or usp...) When possible be specific @ -No Did you speak to anyone other than the patient for history (EMS, parent, family, police, friend...)? What history was obtained from this source @ -No Did you review nursing and triage notes (agree or disagree)? Why? @ -I reviewed and agree with nursing and triage notes Were old charts reviewed (outside hosp., previous admission, EMS record, old EKG, old radiological studies, urgent care reports/EKG's, usp records)? Report findings @ -No old charts were reviewed Differential Diagnosis (chest pain, altered mental status, abdominal pain women, abdominal pain men, vaginal bleeding, weakness, fever, dyspnea, syncope, headache, dizziness, GI bleed, back pain, seizure, CVA, palpatations, mental health, musculoskeletal)? @ -Differential Back Pain: Strain, zoster, cauda equina syndrome, epidural abscess, vertebral os teomyelitis, discitis, fracture, subluxation, disc herniation, DJD, spinal stenosis, dissection, AAA, pancreatitis, peptic ulcer disease, pyelonephritis, kidney stone, this is not meant to be an all-inclusive list. EKG interpreted by me (3pts min.). @ -None X-rays interpreted by me (1pt min.). @ -None done CT interpreted by me (1pt min.). @ -CT abdomen pelvis reveals no acute abnormality, benign left renal gland adenoma U/S interpreted by me (1pt. min.). @ -None done What testing was considered but not performed or refused? (CT, X-rays, U/S, labs)? Why? @ -None What meds were considered but not given or refused? Why? @ -None Did you discuss the management of the patient with other professionals (professionals i.e. DrJanae, PA, LIFE INSURANCE UNDERWRITER, lab, RT, psych nurse, social welfare clerk, wheel buffer, teacher, transportation security officer, caser in)? Give summary @ -No Was smoking cessation discussed for >3mins.? @ -No Was critical care preformed (if so, how long)? @ -No Were there social determinants of health that impacted care today? How? (Homelessness, low income, unemployed, alcoholism, drug addiction, transportation, low edu. Level, literacy, decrease access to med. care, senior living, rehab)? @ -No Was there de-escalation of care discussed even if they declined (Discuss DNR or withdrawal of care, Hospice)? DNR status @ -No What co-morbidities impacted this encounter? (DM, HTN, Smoking, COPD, CAD, Cancer, CVA, ARF, Chemo, Hep., AIDS, mental health diagnosis, sleep apnea, morbid obesity)? @ -None Was patient admitted / discharged? Hospital course, mention meds given and route, prescriptions, significant lab abnormalities, going to OR and other pertinent info. @ -Discharge. 53-year-old male presenting for left flank pain x 1 day. Denies injury or trauma to the back. Patient is well-appearing, no acute distress. Abdomen soft and nonsurgical. Patient is afebrile with no CVA tenderness. Provided with IV fluids, Toradol, and Tylenol. Lab work unremarkable. Urinalysis negative for UTI. CT abdomen pelvis reveals no acute abnormality. Upon reevaluation, patient reports improvement of symptoms. Discussed diagnosis of low back strain. Patient was provided with outpatient prescription for lidocaine patches, Flexeril, and naproxen. Appropriate return precautions and supportive care discussed. Case was discussed with my ED attending Dr. Ogden. Undiagnosed new problem with uncertain prognosis? @ -No Drug Therapy requiring intensive monitoring for toxicity (Heparin, Nitro, Insulin, Cardizem)? @ -[No Were any procedures done? @ -No Diagnosis/symptom? @ -Low back strain Acute, or Chronic, or Acute on Chronic? @ -Acute Uncomplicated (without systemic symptoms) or Complicated (systemic symptoms)? @ -Uncomplicated Side effects of treatment? @ -No Exacerbation, Progression, or Severe Exacerbation? @ -No Poses a threat to life or bodily function? How? (Chest pain, USA, HI, pneumonia, PE, COPD, DKA, ARF, appy, cholecystitis, CVA, Diverticulitis, Homicidal, Suicidal, threat to staff... and all critical care pts) @ -No - Lab Data Result diagrams: 07/16/24 20:42 07/16/24 20:42 Lab Results 07/16/24 07/16/24 07/16/24 Range/Units 20:42 20:42 20:42 WBC 7.29 (4.50-10.00) 10*3/uL RBC 4.73 (4.40-5.60) 10*6/uL Hgb 14.6 (13.0-17.0) g/dL Hct 42.7 (39.6-50.0) % MCV 90.3 (80.0-97.0) fL MCH 30.9 (27.0-32.0) pg MCHC 34.2 (32.0-37.0) g/dL Plt Count 208 (140-440) 10*3/uL MPV 9.7 (9.5-12.2) fL Immature Gran % (Auto) 0.1 % Neutrophils % 65.8 % Lymphocytes % 23.0 % Monocytes % 8.8 % Eosinophils % 1.6 % Basophils % 0.7 % Immature Gran # 0.01 (0.00-0.04) 10*3/uL Neutrophils # 4.79 (1.80-7.70) 10*3/uL Lymphocytes # 1.68 (0.90-5.00) 10*3/uL Monocytes # 0.64 (0.20-1.00) 10*3/uL Eosinophils # 0.12 (0.04-0.35) 10*3/uL Basophils # 0.05 (0.00-0.10) 10*3/uL Sodium 141 (137-145) mmol/L Potassium 4.2 (3.5-5.1) mmol/L Chloride 107 (98-107) mmol/L Carbon Dioxide 27 (22-30) mmol/L Anion Gap 7 mmol/L BUN 19 (9-20) mg/dL Creatinine 1.07 (0.66-1.25) mg/dL Est GFR (CKD-EPI)AfAm >90 (>60 ml/min/1.73 sqM) Est GFR (CKD-EPI)NonAf 79 (>60 ml/min/1.73 sqM) Glucose 98 (74-99) mg/dL Plasma Lactic Acid Raphael (0.7-2.0) mmol/L Calcium 9.7 (8.4-10.2) mg/dL Total Bilirubin 1.4 H (0.2-1.3) mg/dL AST 27 (17-59) U/L ALT 33 (4-49) U/L Alkaline Phosphatase 73 (38-126) U/L Total Protein 7.2 (6.3-8.2) g/dL Albumin 4.3 (3.5-5.0) g/dL Lipase 49 (23-300) U/L Urine Color Yellow Urine Appearance Clear (Clear) Urine pH 5.5 (5.0-8.0) Ur Specific [place] 1.032 (1.001-1.035) Urine Protein Trace H (Negative) Urine Glucose (UA) Negative (Negative) Urine Ketones Negative (Negative) Urine Blood Negative (Negative) Urine Nitrite Negative (Negative) Urine Bilirubin Negative (Negative) Urine Urobilinogen <2.0 (<2.0) mg/dL Ur Leukocyte Esterase Trace H (Negative) Urine RBC 1 (0-5) /hpf Urine WBC 7 H (0-5) /hpf Hyaline Casts 6 H (0-2) /lpf Urine Mucus Many H (None) /hpf 07/16/24 Range/Units 20:42 WBC (4.50-10.00) 10*3/uL RBC (4.40-5.60) 10*6/uL Hgb (13.0-17.0) g/dL Hct (39.6-50.0) % MCV (80.0-97.0) fL MCH (27.0-32.0) pg MCHC (32.0-37.0) g/dL Plt Count (140-440) 10*3/uL MPV (9.5-12.2) fL Immature Gran % (Auto) % Neutrophils % % Lymphocytes % % Monocytes % % Eosinophils % % Basophils % % Immature Gran # (0.00-0.04) 10*3/uL Neutrophils # (1.80-7.70) 10*3/uL Lymphocytes # (0.90-5.00) 10*3/uL Monocytes # (0.20-1.00) 10*3/uL Eosinophils # (0.04-0.35) 10*3/uL Basophils # (0.00-0.10) 10*3/uL Sodium (137-145) mmol/L Potassium (3.5-5.1) mmol/L Chloride (98-107) mmol/L Carbon Dioxide (22-30) mmol/L Anion Gap mmol/L BUN (9-20) mg/dL Creatinine (0.66-1.25) mg/dL Est GFR (CKD-EPI)AfAm (>60 ml/min/1.73 sqM) Est GFR (CKD-EPI)NonAf (>60 ml/min/1.73 sqM) Glucose (74-99) mg/dL Plasma Lactic Acid Raphael 1.0 (0.7-2.0) mmol/L Calcium (8.4-10.2) mg/dL Total Bilirubin (0.2-1.3) mg/dL AST (17-59) U/L ALT (4-49) U/L Alkaline Phosphatase (38-126) U/L Total Protein (6.3-8.2) g/dL Albumin (3.5-5.0) g/dL Lipase (23-300) U/L Urine Color Urine Appearance (Clear) Urine pH (5.0-8.0) Ur Specific [place] (1.001-1.035) Urine Protein (Negative) Urine Glucose (UA) (Negative) Urine Ketones (Negative) Urine Blood (Negative) Urine Nitrite (Negative) Urine Bilirubin (Negative) Urine Urobilinogen (<2.0) mg/dL Ur Leukocyte Esterase (Negative) Urine RBC (0-5) /hpf Urine WBC (0-5) /hpf Hyaline Casts (0-2) /lpf Urine Mucus (None) /hpf Disposition Clinical Impression: Low back strain Disposition: HOME SELF-CARE Condition: Stable Instructions (If sedation given, give patient instructions): Acute Low Back Pain (ED) Additional Instructions: Use lidocaine patches, naproxen, and Flexeril as needed for pain. Do not drive or operate heavy machinery while using Flexeril as it can cause drowsiness. Please return to the Emergency Department if symptoms worsen or any other concerns. Prescriptions: Cyclobenzaprine [Flexeril] 10 mg PO TID PRN #15 tab PRN Reason: Muscle Spasm Lidocaine 4% Patch 1 patch TOPICAL DAILY PRN 7 Days #7 patch PRN Reason: Pain Naproxen 500 mg PO Q12H PRN #30 tab PRN Reason: Pain Is patient prescribed a controlled substance at d/c from ED?: No Referrals: Marisela Jimenez MD [Primary Care Provider] - 1-2 days Time of Disposition: 22:34
[2024-07-16] MEDS: KETOROLAC 15 MG/ML 1 ML VIAL IVP STA (20:48)
[2024-07-16] MEDS: SODIUM CHLORIDE 0.9% 1,000 ML IV STA (20:48)
[2024-07-16] MEDS: ACETAMINOPHEN TAB 500 MG TAB PO STA (20:50)
[2024-07-16 20:55] LABS: Basophils # (A) 0.05 10*3/uL (0.00-0.10); Basophils % (A) 0.7 %; Eosinophils # (A) 0.12 10*3/uL (0.04-0.35); Eosinophils % (A) 1.6 %; HCT 42.7 % (39.6-50.0); HGB 14.6 g/dL (13.0-17.0); Lymphocytes # (A) 1.68 10*3/uL (0.90-5.00); MCH 30.9 pg (27.0-32.0); MCHC 34.2 g/dL (32.0-37.0); MCV 90.3 fL (80.0-97.0); Mean Platelet Volume 9.7 fL (9.5-12.2); Monocytes # (A) 0.64 10*3/uL (0.20-1.00); Monocytes % (A) 8.8 %; Neutrophils # (A) 4.79 10*3/uL (1.80-7.70); Neutrophils % (A) 65.8 %; Platelet Count 208 10*3/uL (140-440); RBC 4.73 10*6/uL (4.40-5.60); RDW 12.3 % (11.5-14.5); WBC 7.29 10*3/uL (4.50-10.00)
--- NOTE | 2024-07-16 21:11 | CT ---
EXAMINATION TYPE: CT abdomen pelvis wo con DATE OF EXAM: 07/16/2024 9:04 PM COMPARISON: None. CLINICAL INDICATION: Male, 53 years old with history of left flank pain, kidney stone suspected; left flank pain TECHNIQUE: Axial CT abdomen pelvis wo con;Sagittal and coronal reformats were created on a separate workstation. Oral contrast used: without Oral Contrast (none if empty) CT DLP: 1022.4 mGycm, Automated exposure control for dose reduction was used. FINDINGS: LOWER CHEST: Unremarkable ABDOMEN LIVER: Diffusely hypoattenuating parenchyma. GALLBLADDER AND BILE DUCTS: Layering increased densities within the lumen consistent with gallstones are present. PANCREAS: Unremarkable. SPLEEN: Unremarkable. ADRENAL GLANDS: Benign adenoma of the left adrenal gland. No right adrenal gland nodule. KIDNEYS AND URETERS: Velocity right renal calculi. No evidence of hydronephrosis bilaterally. PELVIS BLADDER: No evidence for wall thickening or mass given limitations of exam. REPRODUCTIVE: Unremarkable. ABDOMEN & PELVIS STOMACH AND BOWEL: Stomach and duodenum are unremarkable. No evidence of bowel obstruction. PERITONEUM/RETROPERITONEUM: No evidence of pneumoperitoneum or free fluid. VASCULATURE: No evidence of aortic aneurysm. MUSCULOSKELETAL: No acute osseous abnormalities LYMPH NODES: No gross evidence for lymphadenopathy. SOFT TISSUE/ABDOMINAL WALL: Fat-containing bilateral inguinal hernias, right greater than left. IMPRESSION: 1. No acute abnormality in the abdomen/pelvis. Specifically, no evidence of acute obstructive uropat hy. 2. Nonobstructing right renal calculi. 3. Cholelithiasis. 4. Benign left renal gland adenoma. [facility], , 07/16/2024 9:09 PM
[2024-07-16 21:14] LABS: ALT 33 U/L (4-49); AST 27 U/L (17-59); African American GFR (CKD) >90 (>60 ml/min/1.73 sqM); Albumin 4.3 g/dL (3.5-5.0); Alkaline Phosphatase 73 U/L (38-126); Anion Gap 7 mmol/L; Blood Urea Nitrogen 19 mg/dL (9-20); Calcium 9.7 mg/dL (8.4-10.2); Carbon Dioxide 27 mmol/L (22-30); Chloride 107 mmol/L (98-107); Glucose 98 mg/dL (74-99); Lipase 49 U/L (23-300); Non-African American GFR(CKD) 79 (>60 ml/min/1.73 sqM); Potassium 4.2 mmol/L (3.5-5.1); Sodium 141 mmol/L (137-145); Total Bilirubin 1.4 mg/dL (0.2-1.3); Total Protein 7.2 g/dL (6.3-8.2)
[2024-07-16 22:18] LABS: Appearance,Urine Clear (Clear); Bilirubin,Urine Negative (Negative); Blood,Urine Negative (Negative); Color,Urine Yellow; Glucose,Urine (UA) Negative (Negative); Hyaline Casts,Urine 6 /lpf (0-2); Ketones,Urine Negative (Negative); Leukocyte Esterase,Urine Trace (Negative); Mucus,Urine Many /hpf; Nitrite,Urine Negative (Negative); PH, Urine 5.5 (5.0-8.0); Protein,Urine Trace (Negative); RBC,Urine 1 /hpf (0-5); Specific Gravity,Urine 1.032 (1.001-1.035); Urobilinogen,Urine <2.0 mg/dL (<2.0); WBC,Urine 7 /hpf (0-5)
[2024-07-16] MEDS: LIDOCAINE 4% PATCH TOPICAL ONE (22:33)
[2024-07-16 22:39] VITALS: BP 157/90; PULSE 70; RESP 19; TEMP 98.7
== END 2024-07-16 22:39 | disposition home or self-care (01) ==
LOC: EC 19:31
DX: S39.012A Strain of muscle, fascia and tendon of lower back, initial encounter (principal); Z87.891 Personal history of nicotine dependence; X58.XXXA Exposure to other specified factors, initial encounter
CPT/HCPCS: 36415; 80053; 83605; 83690; 85025; 81001; 74176; 99284; 96374; 96361; J1885